=== PATIENT | male | born 1960 | race African-American/Black ===

== ENCOUNTER → 2017-07-06 | Outpatient (CLI) | payer OTHER ==
[~2017-07-06] MED LIST: DIAZEPAM PO; GLUCOPHAGE500 MG PO; LEXAPRO PO; LINZESS145 MCG; METFORMIN PO; OMEPRAZOLE40 M1 PO; PRILOSEC20 MG PO; REGLAN10 MG PO
--- NOTE | ~2017-07-06 | CR236 ---
[facility] A Service of [facility] & [facility] / [facility] RADIOLOGY TEXT RESULTS PATIENT: KELECHI PHAM LOCATION: [facility] : 62 UNIT #: [id number] AGE: [address]: Morales Oliveira MD SEX: M ORDER DR: [id number] [facility] [address] [place], [place] [address] [id number] O MR#: [id number] Acc #: [id number] NAME: KELECHI PHAM : 1960 SEX: M STUDY DATE/TIME: 07/06/2017 11:37 UNIT: [facility] ROOM: STUDY DESCRIPTION: CR Small Bowel Sbft W Films Attending Physician: Morales Oliveira M.D. Referring Physician: Morales Oliveira M.D. Ordering Physician: Morales Oliveira M.D. Primary Care Physician: Gabino Lafleur M.D. MEDICAL IMAGING REPORT This report is preliminary unless electronic signature is present EXAM Small bowel follow-through INDICTIONS Patient has had recurrent abdominal pain since colon surgery 6 years ago. He had a small bowel follow-through, June 2014 which showed some potential polyps within the distal small bowel within the transverse colon. CT of the abdomen and pelvis was performed in September 2016. 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 Patient was subsequently administered barium and multiple overhead images were obtained at 2 hours. Patient did appear to have contrast within the colon and at this point fluoroscopic spot images were obtained. No abnormality of the terminal ileum was identified. Small bowel fold pattern appears within normal limits. No obvious polyps were seen. Total fluoroscopy time was 0.5 minutes. A total of 5 fluoroscopic images were obtained and 8 overhead images were obtained. IMPRESSION Small bowel transit time was found to be 2 hours which is within normal limits. No obvious abnormality of the small bowel was seen. Dictated by... Annelise Pleitez M.D. THIS IS AN ELECTRONICALLY VERIFIED REPORT Annelise Pleitez M.D. at 07/08/2017 2:43 PM AFF/cmm [facility] A Service of [facility] & [facility] / [facility] RADIOLOGY TEXT RESULTS PATIENT: KELECHI PHAM LOCATION: [facility] #: [id number] : 62 UNIT #: [id number] AGE: [address]: Morales Oliveira MD SEX: M ORDER DR: TD: 07/08/2017 11:29 JOB #: [id number] MEDICAL IMAGING REPORT Page 1 of 1 COPY
[2017-07-06 11:29] LABS: HEMATOCRIT 45.2 % (38.0-50.0); HEMOGLOBIN 15.2 gm/dL (13.0-16.0); MEAN CELL VOLUME 89.8 FL (83-96); MEAN CORPUSCULAR HEMOGLOBIN 30.1 PG (28-34); MEAN CORPUSCULAR HGB CONC 33.6 g/dL (30-36); MEAN PLATELET VOLUME 8.2 FL (6.5-11.5); RED BLOOD COUNT 5.03 X10e (3.90-5.60); RED CELL DISTRIBUTION WIDTH 14.2 % (11.0-15.5); WHITE BLOOD COUNT 6.2 X10e3 (4.0-10.5)
[2017-07-06 12:20] LABS: ALBUMIN SERUM 4.5 g/dL (3.5-5.0); BILIRUBIN,TOTAL 0.7 mg/dL (0.2-2.0); BUN/CREATININE RATIO 7.5; CALCIUM SERUM 9.8 mg/dL (8.4-10.2); CREATININE SERUM 1.2 mg/dL (0.6-1.4); GLOM FILT RATE Estimated 78.4 mL/min (>60); POTASSIUM 4.6 mmol/L (3.5-5.1)
== END | disposition home or self-care (01) ==
LOC: CRAD 10:30
PROVIDERS: Internal Medicine
DX: K56.69 Other intestinal obstruction (principal)
CPT/HCPCS: 36415; 74250; 80053; 82150; 83690; 85027; 86140